=== PATIENT | male | born 1965 | race Caucasian/White ===

== ENCOUNTER → 2017-03-06 | Outpatient (CLI) | payer OTHER | END | disposition home or self-care (01) | LOC: MI 19:30 | PROC: BQ37YZZ Magnetic Resonance Imaging (MRI) of Right Knee using Other Contrast (ICD-10-PCS; principal; 2017-03-06) | DX: M25.861 Other specified joint disorders, right knee (principal) | CPT/HCPCS: A9579 ==

== ENCOUNTER 2017-07-27 09:09 | Day surgery (SDC) | payer OTHER ==
[~2017-07-27] VITALS: Ht 180.3 cm; Wt 89.8 kg
[2017-07-27 09:22] VITALS: BP 112/48
[2017-07-27 14:52] VITALS: BP 105/76
== END 2017-07-27 14:30 | disposition home or self-care (01) ==
LOC: DS 09:09 → OR 11:30 → DS 14:30
PROVIDERS: Surgery
PROC: 0YU50JZ Supplement Right Inguinal Region with Synthetic Substitute, Open Approach (ICD-10-PCS; principal; 2017-07-27 11:30)
DX: K40.91 Unilateral inguinal hernia, without obstruction or gangrene, recurrent (principal); Z68.29 Body mass index [BMI] 29.0-29.9, adult
CPT/HCPCS: C1781; J0690; J2250; J3010; J3490

== ENCOUNTER 2018-02-07 05:38 | Day surgery (SDC) | payer OTHER ==
[2018-01-31 13:42] LABS: BASOPHIL % 0.4 % (0-2); PLATELET COUNT 151 x10^3mcL (130-400); RED CELL DISTRIBUTION WIDTH 14.2 % (11.5-14.5)
[2018-01-31 13:45] LABS: ALBUMIN 4.1 g/dL (3.4-5.0); ALKALINE PHOSPHATASE 69 U/L (46-116); ALT/SGPT 19 U/L (16-63); AST/SGOT 16 U/L (15-37); BILIRUBIN TOTAL 0.6 mg/dL (0.20-1.00); CALCIUM 8.9 mg/dL (8.5-10.1); CARBON DIOXIDE 29.4 mmol/L (21-32); CHLORIDE SERUM 103 mmol/L (98-107); CREATININE SERUM 0.9 mg/dL (0.7-1.3); GFR1 > 60 mL/min; GLUCOSE SERUM 92 mg/dL (74-106); POTASSIUM SERUM 4.1 mmol/L (3.5-5.1); SODIUM SERUM 139 mmol/L (136-145); TOTAL PROTEIN, SERUM 7.4 g/dL (6.4-8.2)
[~2018-02-07] VITALS: Ht 180.3 cm; Wt 89.3 kg
[2018-02-07 05:58] VITALS: BP 110/77
[2018-02-07 10:09] VITALS: BP 109/75
== END 2018-02-07 10:00 | disposition home or self-care (01) ==
LOC: DS 05:38
PROVIDERS: Ophthalmology
PROC: 08RK3JZ Replacement of Left Lens with Synthetic Substitute, Percutaneous Approach (ICD-10-PCS; principal; 2018-02-07 07:30)
DX: H25.12 Age-related nuclear cataract, left eye (principal); K21.9 Gastro-esophageal reflux disease without esophagitis; G47.33 Obstructive sleep apnea (adult) (pediatric)
CPT/HCPCS: J2001; J2250; J2704; J3010; J3490

== ENCOUNTER → 2018-07-11 | Outpatient (CLI) | payer OTHER | END | disposition home or self-care (01) | LOC: US 07:29 | PROC: B54DZZZ Ultrasonography of Bilateral Lower Extremity Veins (ICD-10-PCS; principal; 2018-07-11) | DX: I83.93 Asymptomatic varicose veins of bilateral lower extremities (principal) ==

== ENCOUNTER 2018-08-16 08:22 | Day surgery (SDC) | payer OTHER ==
[2018-08-10 10:24] LABS: BASOPHIL % 0.5 % (0-2); PLATELET COUNT 174 x10^3mcL (130-400); RED CELL DISTRIBUTION WIDTH 13.9 % (11.5-14.5)
[2018-08-10 10:26] LABS: CALCIUM 9.1 mg/dL (8.5-10.1); CARBON DIOXIDE 27.9 mmol/L (21-32); CHLORIDE SERUM 104 mmol/L (98-107); CREATININE SERUM 1.1 mg/dL (0.7-1.3); GFR1 > 60 mL/min; GLUCOSE SERUM 111 mg/dL (74-106); POTASSIUM SERUM 5.2 mmol/L (3.5-5.1); SODIUM SERUM 140 mmol/L (136-145)
--- NOTE | 2018-08-10 13:44 | NUR ---
DR. BLACKMAN REVIEWED PTS LAB RESULTS. REPEAT POTASSIUM ON ADMIT.
[~2018-08-16] VITALS: Ht 180.3 cm; Wt 88.9 kg
[2018-08-16 08:44] VITALS: BP 115/42
[2018-08-16 15:24] VITALS: BP 109/74
== END 2018-08-16 15:05 | disposition home or self-care (01) ==
LOC: DS 08:22 → OR 12:00 → DS 15:05 → OR 08-23 11:00
PROVIDERS: Surgery
PROC: 0YU60JZ Supplement Left Inguinal Region with Synthetic Substitute, Open Approach (ICD-10-PCS; principal; 2018-08-16 12:00)
DX: K40.91 Unilateral inguinal hernia, without obstruction or gangrene, recurrent (principal); I50.30 Unspecified diastolic (congestive) heart failure; G47.33 Obstructive sleep apnea (adult) (pediatric)
CPT/HCPCS: C1781; J0690; J1170; J2250; J2704; J3010; J3490; J7120